=== PATIENT | male | born 1965 | race Caucasian/White ===

== ENCOUNTER → 2016-08-31 | Outpatient (CLI) | payer BC ==
[~2016-08-31] MED LIST: ALBUAER2 INH; CLON0.5T3 PO; MULT-506 PO; PRLSR20 PO; RANI75TA7 PO
== END | disposition home or self-care (01) ==
LOC: C.LAB 10:22
PROVIDERS: ATTEND Urology
DX: R31.29 Other microscopic hematuria (principal)